=== PATIENT | male | born 1950 | race Caucasian/White ===

== ENCOUNTER 2017-07-06 10:30 | Outpatient (RCR) | payer OTHER ==
--- NOTE | 2017-06-05 15:01 | PT INITIAL EVALUATION ---
MEDICAL DIAGNOSIS: Right Leg Pain and Weakness TREATMENT DIAGNOSIS: Right Leg Pain and Weakness DATE OF ONSET: 06/05/17 SUBJECTIVE: Deny is a 67 year-old male presenting to physical therapy following gradual onset of R leg pain and weakness that has progressed over the last 6 MO. Pain is currently located in the R quad and groin with radiating pain down to the medial lower leg and ankle rated as a 5/10. Pt reports that occasionally he will have foot weakness, but frequently has leg weakness and is unable to put full weight on it or stay in one position very long. Pt is currently receiving treatment for colon cancer as well with mets to the lungs, liver, and lymph nodes. Pt was recently screened for mets to the long bones, spine as well as for any presence of DVT with all tests negative. 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 Pt's is present throughout evaluation. Posture: Pt has forward flexed posture without lumbar lordosis. When seated and standing pt has weight shifted over L LE. ROM: Lumbar ROM: flexion: minimal restriction with pain, ext: severe restrictions with pain, rotation: B full without pain, side-bending: B full without pain. Hip ROM: flexion: L minimal restrictions secondary to R leg pain, R moderate restrictions at only 90 degrees with R leg pain. ER: B minimal restrictions without pain, IR: L full without pain, R moderate restrictions with pain, Ext: unable to achieve B secondary to pain. Strength: Hip: Flexion: L 4+/5, R 3+/5, ext: B 4+/5, abd: B 4+/5 with slight pain on R side, add: L 4/5, R 3+/5 with pain. Palpation: Pt is tender to palpation along the groin and medial thigh. Special Tests: CLAU: (-) B, FADIR: (+) R side, Thigh Thrust (-) B, pain with passive R Hip abduction. Mobility: Criss Repeated lumbar motion: Ext: centralization of pain from ankle to groin only with decreased intensity at 4/10. Flexion: no change in pain. Gait: Antalgic gait with decreased WB on R LE in stance phase. ASSESSMENT: Pt shows signs and symptoms consistent with lumbar posterior derangement at the L2/3 level with neural impingement and radiating pain and weakness into the R LE. Physical therapy is indicated to correct the above listed deficits, decrease pt pain and improve pt function with ADL's. Short Term Goals In 2 weeks pt will centralize pain without radiation for improved function with ADL's. In 4 weeks pt will improve LE strength to equal to that of the contralateral limb for improved functional gait and ambulation with ADL's. In 4 weeks pt will decrease pain to <2/10 with ADL's for improved functional mobility. Patient's Goals Decrease pain, improve function PLAN: Patient to be seen for Manual Therapy/STM/MET Strengthening/condition Ice/Heat Range of Motion Spinal Stabilization Ultrasound Stretching Iontophoresis Neuromuscular Re-ed Closed Chain Program Electrical Stim Posture/Body mechanics Gait Trg/Balance Trg Biofeedback Home Exercise Program Mech./Manual Traction Therapeutic Activities Pelvic Floor 3x/Week for 4 Weeks If you have any questions, comments, or concerns about this report or plan, please contact me at . Thank you, Breanne Maier, PT, DPT, CLT MTDD
--- NOTE | 2017-06-30 10:18 | PT PLAN OF CARE ---
Physician: SHIRA Ovalle Patient is being seen: 2x/week Therapist: Gallo Bailey, PT, DPT Medical Diagnosis: Right Leg Pain and Weakness Treatment Diagnosis: Right Leg Pain and Weakness Date of Onset: 06/05/17 Date of Initial Evaluation: 06/05/17 Date patient was last seen: 06/29/17 Number of treatments: 10 Number of cancellations/No shows: 0 INTERVENTIONS: Manual Therapy/STM/MET Strengthening/condition Ice/Heat Range of Motion Spinal Stabilization Ultrasound Stretching Iontophoresis Neuromuscular Re-ed Closed Chain Program Electrical Stim Posture/Body mechanics Gait Trg/Balance Trg Biofeedback Home Exercise Program Mech./Manual Traction Therapeutic Activities Pelvic Floor GOALS: In 2 weeks pt will centralize pain to one location without radiation for improved function with ADL's. In 4 weeks pt will improve LE strength to equal to that of the central limb for improved functional gait and ambulation with ADL's. In 4 weeks pt will decrease pain to <2/10 with ADL's for improved functional mobility. PATIENT'S GOAL: Decrease pain, improve function Status of Patient's Goals: slowly progressing Patient Compliance: Good Prognosis: Fair Reasons for continuing therapy: This is a progress note for Deny Donahue. He reports that his low back pain was feeling better until he sat too fast and too hard over the weekend and states that the low back pain has returned. He reports that the pain extends from R to L PSIS. However, he reports that he continues to have this R groin pain that seems to stay around even after physical therapy treatments. He rates his R groin pain to be 5/10 and rates his low back pain to be 3-4/10. Throughout this treatment, we re-examined his low back and found that his groin pain became worse with prone extension, prone extension with hips shifted to the R, however, his groin pain became better with prone extension with hips shifted to the L. Furthermore, he abolished his R groin pain with L sidegliding and by the end of the session he was independent on his L sidegliding motion and was instructed to perform every 2 hours or if groin pain returns prior to the 2 hour ruma. He agreed to do so. We will centralized his pain and then the pain will abolish and then we will perform recovery of function to return to prior level of function. Posture: Pt has forward flexed posture without lumbar lordosis. When seated and standing pt has weight shifted over L LE. ROM: Lumbar ROM: flexion: minimal restriction with pain, ext: severe restrictions with pain, rotation: B full without pain, side-bending: B full without pain. Hip ROM: flexion: L minimal restrictions secondary to R leg pain, R moderate restrictions at only 90 degrees with R leg pain. ER: B minimal restrictions without pain, IR: L full without pain, R moderate restrictions with pain, Ext: unable to achieve B secondary to pain. Strength: Hip: Flexion: L 4+/5, R 3+/5, ext: B 4+/5, abd: B 4+/5 with slight pain on R side, add: L 4/5, R 3+/5 with pain. Palpation: Pt is tender to palpation along the groin and medial thigh. Special Tests: CLAU: (-) B, FADIR: (+) R side, Thigh Thrust (-) B, pain with passive R Hip abduction. Mobility: Criss Repeated lumbar motion: Ext: centralization of pain from ankle to groin only with decreased intensity at 4/10. Flexion: no change in pain. If you have any questions, please contact me at [phone]. Thank you, Gallo Bailey, PT, DPT VYD
[~2017-07-06 10:30] MED LIST: FAMO20TA28 PO; IBUP100T51 PO; LACT1CAP4 PO; ONDA4TAB PO; ONDA8TAB94 PO; OXYC-373 PO; OXYC5TAB38 PO; PRED20TA6 PO; PROC10TA95 PO; TURM538C PO
[2017-07-13] MEDS ORDERED: MULT-1335 PO (10:43)
--- NOTE | 2017-07-27 11:12 | PT PLAN OF CARE ---
Physician: SHIRA Ovalle Patient is being seen: 2-3x/Week Therapist: Breanne Maier, PT, DPT, CLT Medical Diagnosis: Right Leg Pain and Weakness Treatment Diagnosis: Right Leg Pain and Weakness Date of Onset: 06/05/17 Date of Initial Evaluation: 06/05/17 Date patient was last seen: 07/13/17 Number of treatments: 13 Number of cancellations/No shows: 2 NTERVENTIONS: Manual Therapy/STM/MET Strengthening/condition Ice/Heat Range of Motion Spinal Stabilization Ultrasound Stretching Iontophoresis Neuromuscular Re-ed Closed Chain Program Electrical Stim Posture/Body mechanics Gait Trg/Balance Trg Biofeedback Home Exercise Program Mech./Manual Traction Therapeutic Activities Pelvic Floor GOALS: In 2 weeks pt will centralize pain to one location without radiation for improved function with ADL's. In 4 weeks pt will improve LE strength to equal to that of the central limb for improved functional gait and ambulation with ADL's. In 4 weeks pt will decrease pain to <2/10 with ADL's for improved functional mobility. PATIENT'S GOAL: Decrease pain, improve function Status of Patient's Goals: slowly progressing Patient Compliance: Good Prognosis: Fair Reasons for continuing therapy: This is a progress note for Deny Donahue. He reports that his low back pain was feeling better until he sat too fast and too hard over the weekend and states that the low back pain has returned. He reports that the pain extends from R to L PSIS. However, he reports that he continues to have this R groin pain that seems to stay around even after physical therapy treatments. He rates his R groin pain to be 5/10 and rates his low back pain to be 3-4/10. Throughout this treatment, we re-examined his low back and found that his groin pain became worse with prone extension, prone extension with hips shifted to the R, however, his groin pain became better with prone extension with hips shifted to the L. Furthermore, he abolished his R groin pain with L sidegliding and by the end of the session he was independent on his L sidegliding motion and was instructed to perform every 2 hours or if groin pain returns prior to the 2 hour ruma. He agreed to do so. We will centralized his pain and then the pain will abolish and then we will perform recovery of function to return to prior level of function. Posture: Pt has forward flexed posture without lumbar lordosis. When seated and standing pt has weight shifted over L LE. ROM: Lumbar ROM: flexion: minimal restriction with pain, ext: severe restrictions with pain, rotation: B full without pain, side-bending: B full without pain. Hip ROM: flexion: L minimal restrictions secondary to R leg pain, R moderate restrictions at only 90 degrees with R leg pain. ER: B minimal restrictions without pain, IR: L full without pain, R moderate restrictions with pain, Ext: unable to achieve B secondary to pain. Strength: Hip: Flexion: L 4+/5, R 3+/5, ext: B 4+/5, abd: B 4+/5 with slight pain on R side, add: L 4/5, R 3+/5 with pain. Palpation: Pt is tender to palpation along the groin and medial thigh. Special Tests: CLAU: (-) B, FADIR: (+) R side, Thigh Thrust (-) B, pain with passive R Hip abduction. If you have any questions, please contact me at [phone]. Thank you, Breanne Maier, PT, DPT, CLT MTDD
== END 2017-07-06 18:00 | disposition home or self-care (01) ==
LOC: PT 10:30
PROVIDERS: ATTEND Nurse Practitioner Family
DX: M79.604 Pain in right leg (principal); M62.81 Muscle weakness (generalized); C26.0 Malignant neoplasm of intestinal tract, part unspecified; C78.00 Secondary malignant neoplasm of unspecified lung; C78.7 Secondary malignant neoplasm of liver and intrahepatic bile duct; C77.9 Secondary and unspecified malignant neoplasm of lymph node, unspecified
CPT/HCPCS: 97162

== ENCOUNTER 2017-07-14 13:30 | Outpatient (RCR) | payer OTHER ==
[2017-05-11 15:37] VITALS: BP 136/90
--- NOTE | 2017-05-13 00:54 | ONCOLOGY FOLLOW UP NOTE ---
EVENT DATE: May 11, 2017 CHIEF COMPLAINT/REASON FOR VISIT Mr. Donahue is a pleasant 67-year-old gentleman with metastatic colon cancer now on second line PD1 inhibitor that presents for followup. HISTORY OF PRESENT ILLNESS Mr. Donahue returns. He received 10 cycles of FOLFOX followed by 5-FU leucovorin with Avastin. We transitioned to the oxaliplatin free regimen in January 2017 and this continued until March 2017 where he had progressive disease. We have now started Keytruda and he is tolerating this well. His biggest complaint though is sciatica type pain which preceded the initiation of Keytruda. I am worried about a bulging disk or spinal stenosis based on his history. I would like to get an MRI to rule out metastatic disease there as well, however, I think this is most likely an unrelated issue. It is causing pain down his right leg, trouble sleeping, and most of his side effects at this time. In general he feels better the farther away he gets from chemotherapy. 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. ONCOLOGIC HISTORY Patient presented with three to four months of anorexia and steady weight loss of 25 pounds. Imaging revealed stage IV adenocarcinoma of the colon. He received his initial therapy with FOLFOX with Avastin in [place] to be closer to family. He received 10 cycles of FOLFOX with Avastin. We transitioned to 5-FU leucovorin and Avastin without oxaliplatin on January 13, 2017. His scans including the most recent scan on January 13 showed decreased hepatic metastatic disease, no new evidence of disease, improved lymph nodes. Evidence of progression in April 2017. Plan to switch to pembrolizumab. 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. 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 MEDICATIONS 1. Oxycodone. 2. Zofran. 3. Tumeric. 4. Compazine. 5. Probiotic. 6. Pepcid. REVIEW OF SYSTEMS CONSTITUTIONAL: No fevers, chills, weight change. HEENT: No headache, vision changes. CARDIOVASCULAR: No chest pain, dyspnea on exertion or edema. RESPIRATORY: No shortness of breath, wheeze, cough. GASTROINTESTINAL: No nausea, vomiting, diarrhea or constipation. GENITOURINARY: No dysuria or hematuria, pain. MUSCULOSKELETAL: No weakness or joint pain. PSYCHIATRIC: No anxiety or depression. Normal mood and affect today. NEUROLOGIC: No headaches. Confusion. HEMATOLOGIC: No bruising, bleeding. SKIN: No concerning rashes or other new lesions. The remainder of the 14-point review of systems is otherwise negative, except as noted above in the HPI. PHYSICAL EXAMINATION VITAL SIGNS: Blood pressure 136/90, pulse 88, respiratory rate 16, temperature 97.1 degrees Fahrenheit. Oxygen saturation 95% on room air. Weight 75.7 kg. Pain 3/10, fatigue 5/10. GENERAL: In stable condition, resting comfortably in the chair. HEENT: Normocephalic, atraumatic. CARDIOVASCULAR: Regular rate and rhythm. LUNGS: Clear. ABDOMEN: Soft, nontender, nondistended. NEUROLOGIC: Patient has pain down the medial thigh on the right leg. It is affecting his gait somewhat. He does feel some relief with leaning forward, which makes me think of spinal stenosis. I am also concerned about potentially a bulging disk or other issue. We did not see significant metastatic disease in that area, but we will review imaging with an MRI soon. Normal mood and affect, otherwise unremarkable physical exam. EXTREMITIES: No clubbing, cyanosis or edema. IMPRESSION AND PLAN Mr. Donahue is a pleasant 67-year-old gentleman with the followin. Stage IV metastatic adenocarcinoma of the colon, MSI high, on pembrolizumab and tolerating it well. 2. Right leg pain and back pain. Concern for a benign unrelated issue and we will get an MRI. It is possible he has metastatic disease in that area as well with some pseudo progression since starting the pembrolizumab. However, his symptoms did proceed initiation. I answered all of his questions. We will see him at least monthly. Billing: Return visit level 4. Total time 30 minutes, counseling time 20. MTDD
[2017-05-14 13:22] VITALS: BP 139/98
[2017-05-21 08:09] VITALS: BP 132/101
--- NOTE | 2017-05-21 13:58 | RADIOLOGY IMAGING REPORT ---
FACILITY: [facility] PATIENT NAME: Deny Donahue : 1950 MR: [id number] V: [id number] EXAM DATE: ORDERING PHYSICIAN: ANICETO WARD TECHNOLOGIST: Location: [facility] Patient: Deny Donahue : 1950 Visit/Account:[id number] Date of Sevice: 05/21/2017 EXAMINATION: Lumbar spine MRI without IV contrast Lumbar spine MRI with IV contrast HISTORY: Low back pain. Colon cancer. COMPARISON: CT of the chest, abdomen, and pelvis dated 04/08/2017 TECHNIQUE: Multi-planar, multi-sequence lumbar spine MRI was performed before and after IV contrast. CONTRAST: 15 mL of IV MultiHance FINDINGS: Alignment: Normal. Vertebral marrow signal: Mild degenerative endplate changes at a few levels. Otherwise negative. Distal thoracic cord: Negative. Conus: negative, terminates at L1 Cauda equina: Negative. Paravertebral soft tissues: Negative. Visualized abdominal and pelvic structures: Negative. Enhancement pattern: Negative. Disc Spaces: Lower thoracic spine: Mild degenerative changes with no stenosis. L1-2: Mild circumferential disc bulge and facet hypertrophy. Small central annular fissure. Mild bila teral lateral recess stenosis. No significant neural foraminal stenosis. L2-3: Mild disc height loss. Circumferential disc bulge, eccentric to the left, with superimposed sma ll left central disc extrusion. Mild to moderate facet hypertrophy and ligamentum flavum thickening. Severe left lateral recess stenosis with possible impingement of the traversing left L3 nerve root. M ild right lateral recess stenosis. Moderate left neural foraminal stenosis. L3-4: Mild circumferential disc bulge. Moderate facet hypertrophy and ligamentum flavum thickening, l eft greater than right. Mild right and moderate left lateral recess stenosis. Mild right and moderate left neural foraminal stenosis. L4-5: Mild circumferential disc bulge. Moderate to severe facet hypertrophy and ligamentum flavum thi ckening, left greater than right. Moderate bilateral lateral recess stenosis. Mild central spinal can al stenosis. And mild to moderate right and moderate left neural foraminal stenosis. L5-S1: Moderate central disc protrusion with bilateral facet hypertrophy. Moderate bilateral lateral recess stenosis. Mild bilateral neural foraminal stenosis. IMPRESSION: Multilevel degenerative disc disease and facet hypertrophy of the lumbar spine. No evidence of lumbar spine metastasis. Please see above report for level by level description. Report Dictated By: Patrice Thibodeaux MD at 05/21/2017 1:44 PM Report E-Signed By: Patrice Thibodeaux MD at 05/21/2017 1:54 PM WSN:[id number]
[2017-06-04 11:04] VITALS: BP 151/104
--- NOTE | 2017-06-04 12:40 | RADIOLOGY IMAGING REPORT ---
[facility] PATIENT NAME: Deny Donahue : 1950 MR: [id number] V: [id number] EXAM DATE: ORDERING PHYSICIAN: RHETT AVALOS TECHNOLOGIST: Location: [facility] Patient: Deny Donahue : 1950 Visit/Account:[id number] Date of Sevice: 06/04/2017 Venous Doppler ultrasound right lower extremity Indication: Right upper leg swelling. Right groin pain.. Comparison: None Available Findings: Duplex Doppler and color flow imaging was performed. The common femoral, femoral, and popliteal veins are all patent and compressible with normal Doppler wave forms. There are normal responses to augme ntation. The posterior tibial and peroneal veins are patent in the calf. The proximal greater saphenous vein is also normal. IMPRESSION: No evidence of deep venous thrombosis of the right lower extremity. Report Dictated By: Patrice Thibodeaux MD at 06/04/2017 12:33 PM Report E-Signed By: Patrice Thibodeaux MD at 06/04/2017 12:34 PM WSN:[id number]
[2017-06-04] MEDS: NS(*) 0.9% 100 ML BAG 100 ML IVPB PRN (12:43)
--- NOTE | 2017-06-04 16:21 | ONC Progress Note - NP.Halsey ---
Patient History Date of Service Jun 04, 2017 Reason For Visit/HPI Patient is seen in the clinic today for cycle 3 of Keytruda given every 21 days for his metastatic colon cancer. Patient continues to have fatigue and weakness. He is complaining of pain in his right upper thigh with slight edema. He had an MRI of the lumbar spine which was reviewed in detail with patient and spouse today. This shows degenerative disease only and no evidence of metastatic bone disease. Ultrasound was completed today to rule out deep vein thrombosis. This was reported to be negative. Patient will be referred for physical therapy and possible lymphedema management if indicated. Patient is taking oxycodone 10 mg at night and only ibuprofen during the day because of the side effects oxycodone causes he does not want to take it in the daytime. He reports tolerating Keytruda without any side effects. Problem List (1) Colon cancer Oncology History Patient presented with three to four months of anorexia and steady weight loss of 25 pounds. Imaging revealed stage IV adenocarcinoma of the colon. He received his initial therapy with FOLFOX with Avastin in [place] to be closer to family. He received 10 cycles of FOLFOX with Avastin. We transitioned to 5-FU leucovorin and Avastin without oxaliplatin on January 13, 2017. His scans including the most recent scan on January 13 showed decreased hepatic metastatic disease, no new evidence of disease, improved lymph nodes. Evidence of progression in April 2017. 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 Alcohol History He denies abuse Smoking History: No Smoking Status: Never Smoker Medications and Allergies Active Scripts Oxycodone Hcl (OXYCODONE HCL) 5 Mg Tablet, 5 MG PO Q3-4H for PAIN, #150 TAB Prov:RHETT AVALOS BRIDGE RIGGER-BC, ONC 05/21/17 Prochlorperazine Maleate (PROCHLORPERAZINE MALEATE) 10 Mg Tablet, 10 MG PO Q6H, #60 TAB 3 Refills Prov:RHETT AVALOS BRIDGE RIGGER-BC, ONC 04/23/17 Ondansetron (ZOFRAN ODT) 8 Mg Tab.rapdis, 8 MG PO Q12H, #60 TAB 3 Refills Prov:RHETT AVALOS BRIDGE RIGGER-BC, ONC 02/12/17 Reported Medications Ibuprofen (ADVIL) 100 Mg Tablet, 2 TAB PO PRN 05/11/17 Turmeric Root Extract (Turmeric) 538 Mg Capsule, PO 01/26/17 Lactobacillus Acidophilus (PROBIOTIC) 1 Each Capsule, 1 EACH PO DAILY, CAPSULE 01/26/17 Famotidine (PEPCID) 20 Mg Tablet, 20 MG PO BID, #10 TAB 01/26/17 Discontinued Scripts Prednisone (PREDNISONE) 20 Mg Tablet, 10 MG PO QDAY for 3 Days, #30 TAB Please take 10mg PO for 3 days and save extra pills for future. Prov:ANICETO WARD MD 05/11/17 Allergies: Coded Allergies: No Known Drug Allergies (Unverified , 06/26/16) Review of System/Physical Exam Review of Systems All Systems Reviewed/Normal: Yes, Except as Noted Cardiovascular: Positive for Edema (right upper thigh) Respiratory: Positive for Shortness of Breath (with exertion thought to be due to fatigue) Hematologic: Positive for Fatigue, Positive for Weakness Musculoskeletal: Positive for Muscle Pain (right thigh), Positive for Joint Pain (right groin area) Psychiatric: Depression (flat affect), Other (spouse is with him today) Physical Exam Vital Signs Temperature: 96.8 Pulse: 85 BP Systolic: 151 BP Diastolic: 104 Respiratory Rate: 16 O2 SAT: 96 O2 Delivery: Height (inches) 65.15 Weight lb: Weight oz: Weight Kg (Dae): Pain: 3 ECOG Score: 2 General: Stable, Well Developed, Well Nourished, Not In Acute Distress Neck: Supple Lungs: Clear to Auscultation Heart: Regular Rate, Regular Rhythm, No Gallops Abdomen: Soft and Nontender, No Hepatosplenomegaly, No Masses Extremities: Edema (right upper thigh area appears to be larger than the left upper thigh, tenderness with palpation in the right medial groin area. Ultrasound was reported to be unremarkable for deep vein thrombosis) Lymphadenopathy: No Cervical Psychiatric: Mood appears normal (normal for this patient), Affect appears normal (flat affect), Other (spouse is with him and answers most questions for patient) Skin: No Bruising, No Purpura Diagnostic Studies Diagnostic Studies Laboratory Laboratory Tests 06/04/17 11:10 Laboratory Tests 06/04/17 11:10: White Blood Count 7.3, Hemoglobin 16.1, Hematocrit 45.9, Platelet Count 208, Neutrophils (%) (Auto) 71.1, Lymphocytes (%) (Auto) 14.3, Neutrophils # (Auto) 5.2, Lymphocytes # (Auto) 1.0, Sodium Level 131, Potassium Level 4.1, Chloride Level 96, Carbon Dioxide Level 24, Blood Urea Nitrogen 14, Creatinine 0.90, Glomerular Filtration Rate Calc > 60.0, Random Glucose 141, Calcium Level 9.0, Magnesium Level 1.9, Total Bilirubin 1.8, Aspartate Amino Transf (AST/SGOT) 62, Alanine Aminotransferase (ALT/SGPT) 51, Alkaline Phosphatase 447, Total Protein 6.8, Albumin 3.5, Thyroid Stimulating Hormone (TSH) 2.66, Free Thyroxine 1.39 Assessment and Plan Assessment & Plan Mr. Donahue is a pleasant 67-year-old gentleman with the followin. Stage IV metastatic adenocarcinoma of the colon, MSI high, on pembrolizumab and tolerating it well. Patient completed cycle 3 today 2. Right leg pain and back pain. Concern for a benign unrelated issue and we will get an MRI. No evidence of metastatic disease noted. Patient was given prednisone but didn't take it. Ultrasound of the right leg to include the groin area was completed today to rule out DVT. This was unremarkable no evidence of a DVT. Patient has slight edema. He'll be referred for physical therapy for strengthening and possible lymphedema management if indicated. Patient will follow with Dr. Aguirre or myself with his next treatment. He agreed with this plan of care. I personally spent a total of 35 minutes. Of that 35 minutes was counseling/ coordination of patient's care. See my note above for details. Copies to: JACK OLIVEIRA MD; ANICETO WARD MD, NANCY J BRIDGE RIGGER-BC, ONC Jun 04, 2017 16:21
[2017-06-10 13:04] VITALS: BP 126/92
--- NOTE | 2017-06-10 13:57 | ONC Progress Note - NP.Halsey ---
Patient History Date of Service Jun 10, 2017 Reason For Visit/HPI Patient is seen in the clinic after experiencing a fall from the 3rd step to his bottom last night. Patient denies any acute pain or changes in pain. He feels that he had the breath knocked out of him when he experienced a fall, but was able to get up and ambulate without difficulty. He denies any increased symptoms and pain. He has no bruising in the area. Patient is able to ambulate without changes. At this time he is not interested in any x-rays or diagnostic studies for further evaluation. He would like to continue physical therapy as he feels that it is helping with his weakness. His and daughter are with him today. They have no increased concerns. Patient was seen in the clinic recently for cycle 3 of Keytruda given every 21 days for his metastatic colon cancer. He was experiencing weakness and fatigue due to treatment and pain was stable. He is tolerating Keytruda without difficulty Problem List (1) Fall (on) (from) other stairs and steps, sequela (2) Colon cancer Oncology History Patient presented with three to four months of anorexia and steady weight loss of 25 pounds. Imaging revealed stage IV adenocarcinoma of the colon. He received his initial therapy with FOLFOX with Avastin in [place] to be closer to family. He received 10 cycles of FOLFOX with Avastin. We transitioned to 5-FU leucovorin and Avastin without oxaliplatin on January 13, 2017. His scans including the most recent scan on January 13 showed decreased hepatic metastatic disease, no new evidence of disease, improved lymph nodes. Evidence of progression in April 2017. 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 Alcohol History He denies abuse Smoking History: No Smoking Status: Never Smoker Medications and Allergies Active Scripts Oxycodone Hcl (OXYCODONE HCL) 5 Mg Tablet, 5 MG PO Q3-4H for PAIN, #150 TAB Prov:RHETT AVALOS PRIMARY CARE NURSE PRACTITIONER-BC, ONC 05/21/17 Prochlorperazine Maleate (PROCHLORPERAZINE MALEATE) 10 Mg Tablet, 10 MG PO Q6H, #60 TAB 3 Refills Prov:RHETT AVALOS PRIMARY CARE NURSE PRACTITIONER-BC, ONC 04/23/17 Ondansetron (ZOFRAN ODT) 8 Mg Tab.rapdis, 8 MG PO Q12H, #60 TAB 3 Refills Prov:RHETT AVALOS PRIMARY CARE NURSE PRACTITIONER-BC, ONC 02/12/17 Reported Medications Ibuprofen (ADVIL) 100 Mg Tablet, 2 TAB PO PRN 05/11/17 Turmeric Root Extract (Turmeric) 538 Mg Capsule, PO 01/26/17 Lactobacillus Acidophilus (PROBIOTIC) 1 Each Capsule, 1 EACH PO DAILY, CAPSULE 01/26/17 Famotidine (PEPCID) 20 Mg Tablet, 20 MG PO BID, #10 TAB 01/26/17 Discontinued Scripts Prednisone (PREDNISONE) 20 Mg Tablet, 10 MG PO QDAY for 3 Days, #30 TAB Please take 10mg PO for 3 days and save extra pills for future. Prov:ANICETO WARD MD 05/11/17 Allergies: Coded Allergies: No Known Drug Allergies (Unverified , 06/26/16) Review of System/Physical Exam Review of Systems All Systems Reviewed/Normal: Yes, Except as Noted Gastrointestinal: Abdominal Pain Hematologic: Positive for Fatigue, Positive for Weakness Musculoskeletal: Positive for Muscle Pain, Positive for Joint Pain, Positive for Bone Pain Physical Exam Vital Signs Temperature: 97.0 Pulse: 80 BP Systolic: 126 BP Diastolic: 92 Respiratory Rate: 16 O2 SAT: 95 O2 Delivery: Height (inches) 65.15 Weight lb: Weight oz: Weight Kg (Dae): Pain: 5 ECOG Score: 1 General: Stable, Well Developed, Well Nourished, Not In Acute Distress Heart: Regular Rate, Regular Rhythm Abdomen: Soft and Nontender, No Hepatosplenomegaly, No Masses Extremities: No Cyanosis, No Clubbing, No Edema, Other (No pain in the thoracic area with palpation or movement. No pain in the hips bilaterally with palpation and hip rotation. Ambulation is slow and with the use of a cane, this is unchanged from previous. No tingling or radiatiing pain in the lower extremities) Psychiatric: Mood appears normal, Affect appears normal, Other (spouse and daughter are with him today and agree with plan of care.) Skin: No Bruising, No Purpura Diagnostic Studies Diagnostic Studies Laboratory no studies today Laboratory Tests 06/04/17 11:10 Laboratory Tests 06/04/17 11:10: White Blood Count 7.3, Hemoglobin 16.1, Hematocrit 45.9, Platelet Count 208, Neutrophils (%) (Auto) 71.1, Lymphocytes (%) (Auto) 14.3, Neutrophils # (Auto) 5.2, Lymphocytes # (Auto) 1.0, Sodium Level 131, Potassium Level 4.1, Chloride Level 96, Carbon Dioxide Level 24, Blood Urea Nitrogen 14, Creatinine 0.90, Glomerular Filtration Rate Calc > 60.0, Random Glucose 141, Calcium Level 9.0, Magnesium Level 1.9, Total Bilirubin 1.8, Aspartate Amino Transf (AST/SGOT) 62, Alanine Aminotransferase (ALT/SGPT) 51, Alkaline Phosphatase 447, Total Protein 6.8, Albumin 3.5, Thyroid Stimulating Hormone (TSH) 2.66, Free Thyroxine 1.39, Free Triiodothyronine 2.8 Assessment and Plan Assessment & Plan Mr. Donahue is a pleasant 67-year-old gentleman with the followin. Stage IV metastatic adenocarcinoma of the colon, MSI high, on pembrolizumab and tolerating it well. Patient completed cycle 3 on 06-04-17 without difficulty. 2. Right leg pain and back pain. Concern for a benign unrelated issue. MRI had no evidence of metastatic disease. Patient was given prednisone but didn't take it. Ultrasound of the right leg to include the groin area was completed on 06-04-17 to rule out DVT. This was unremarkable no evidence of a DVT. Patient had slight edema. He was referred for physical therapy for strengthening and possible lymphedema management if indicated. Patient reports improvement with PT regarding pain and mobility. 3. Fall from second stair to his back on 06-09-16 in the evening. Patient did not go to the emergency room and did not feel he had increased pain or experienced any trauma. He is able to ambulate today without significant changes. Pain remains stable. He agreed to have diagnostic studies done if pain increased. We will monitor for change in symptoms. He can continue with PT exercises and will stop if he has increased pain. Patient will follow with Dr. Aguirre or myself with his next treatment. He agreed with this plan of care. I personally spent a total of 20 minutes. Of that 20 minutes was counseling/ coordination of patient's care. See my note above for details. RHETT AVALOS PRIMARY CARE NURSE PRACTITIONER-BC, ONC Jun 10, 2017 13:57
--- NOTE | 2017-06-25 11:28 | ONC Progress Note - NP.Halsey ---
Patient History Date of Service Jun 25, 2017 Reason For Visit/HPI Patient is seen in the clinic today for cycle 4 of Keytruda given every 21 days for his metastatic colon cancer. Overall patient is tolerating treatment without difficulty. He denies any shortness of breath, diarrhea, or increased fatigue. Patient feels that his fatigue is slightly improved. He occasionally has incontinence of urine and is wearing a depends. He has had a couple episodes of stool incontinence related to inability to get to the bathroom quick enough due to pain in his hip. Patient has been on MiraLAX 1 Daily and I have encouraged them to decrease this to half a cap daily. He is fearful of developing constipation. He currently is taking 2 oxycodone daily for pain management and occasionally takes 2 Advil. Patient was seen in the clinic recently for a fall and reports that he has not had any further discomfort and feels that that pain has totally resolved. Problem List (1) Colon cancer Oncology History Patient presented with three to four months of anorexia and steady weight loss of 25 pounds. Imaging revealed stage IV adenocarcinoma of the colon. He received his initial therapy with FOLFOX with Avastin in [place] to be closer to family. He received 10 cycles of FOLFOX with Avastin. We transitioned to 5-FU leucovorin and Avastin without oxaliplatin on January 13, 2017. His scans including the most recent scan on January 13 showed decreased hepatic metastatic disease, no new evidence of disease, improved lymph nodes. Evidence of progression in April 2017. 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. 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 Alcohol History He denies abuse Smoking History: No Smoking Status: Never Smoker Medications and Allergies Active Scripts Prochlorperazine Maleate (PROCHLORPERAZINE MALEATE) 10 Mg Tablet, 10 MG PO Q6H, #100 TAB 2 Refills Prov:RHETT AVALOS-BC, ONC 06/25/17 Ondansetron (ZOFRAN ODT) 8 Mg Tab.rapdis, 8 MG PO Q8H, #60 TAB 3 Refills Prov:RHETT AVALOS-BC, ONC 06/25/17 Oxycodone Hcl (OXYCODONE HCL) 5 Mg Tablet, 5 MG PO Q3-4H for PAIN, #150 TAB Prov:RHETT AVALOSP-BC, ONC 05/21/17 Reported Medications Ibuprofen (ADVIL) 100 Mg Tablet, 2 TAB PO PRN 05/11/17 Turmeric Root Extract (Turmeric) 538 Mg Capsule, PO 01/26/17 Lactobacillus Acidophilus (PROBIOTIC) 1 Each Capsule, 1 EACH PO DAILY, CAPSULE 01/26/17 Famotidine (PEPCID) 20 Mg Tablet, 20 MG PO BID, #10 TAB 01/26/17 Allergies: Coded Allergies: No Known Drug Allergies (Unverified , 06/26/16) Review of System/Physical Exam Review of Systems All Systems Reviewed/Normal: Yes, Except as Noted Gastrointestinal: Diarrhea (loose stools) Genitourinary: Positive for Other (urinary incontinence, see above) Hematologic: Positive for Fatigue (Amalia relatively stable to improved), Positive for Weakness Musculoskeletal: Positive for Muscle Pain (right hip), Positive for Joint Pain Psychiatric: Other (his is with him today) Physical Exam Vital Signs Temperature: 97.0 Pulse: 80 BP Systolic: 126 BP Diastolic: 92 Respiratory Rate: 16 O2 SAT: 95 O2 Delivery: Height (inches) 65.15 Weight lb: Weight oz: Weight Kg (Dae): Pain: 5 ECOG Score: 2 General: Stable, Well Developed, Well Nourished, Not In Acute Distress HEENT: No Trauma Neck: Supple Lungs: Clear to Auscultation Heart: Regular Rate, Regular Rhythm, No Murmurs Abdomen: Soft and Nontender, No Hepatosplenomegaly, No Masses, Other (bowel sounds are active) Extremities: No Cyanosis, No Clubbing, No Edema Lymphadenopathy: No Cervical Psychiatric: Mood appears normal, Affect appears normal Skin: No Bruising, No Purpura Diagnostic Studies Diagnostic Studies Laboratory Item Value Date Time White Blood Count 10.3 k/uL 06/25/17 1115 Hemoglobin 15.8 g/dL 06/25/17 1115 Hematocrit 44.7 % 06/25/17 1115 Platelet Count 216 K/uL 06/25/17 1115 Neutrophils (%) (Auto) 71.3 % 06/25/17 1115 Lymphocytes (%) (Auto) 12.0 % L 06/25/17 1115 Neutrophils # (Auto) 7.4 K/uL 06/25/17 1115 Lymphocytes # (Auto) 1.2 K/uL L 06/25/17 1115 Sodium Level 135 mmol/L L 06/25/17 1115 Random Glucose 119 mg/dl H 06/25/17 1115 Aspartate Amino Transf (AST/SGOT) 64 U/L H 06/25/17 1115 Alkaline Phosphatase 402 U/L H 06/25/17 1115 Total Protein 6.8 gm/dl 06/25/17 1115 Free Triiodothyronine 2.8 pg/mL 06/04/17 1110 Carcinoembryonic Antigen 79.5 ng/mL H 04/08/17 0935 Assessment and Plan Assessment & Plan Mr. Donahue is a pleasant 67-year-old gentleman with the followin. Stage IV metastatic adenocarcinoma of the colon, MSI high, on pembrolizumab and tolerating it well. Patient completed cycle 3 on 06-04-17 without difficulty. He will receive cycle 4 today. Previous pain in the abdomen remains stable. Patient is currently taking 2 oxycodone daily and occasional to Advil as needed. Pain is rated a 2 /3 out of 10. 2. Right leg pain and back pain. Concern for a benign unrelated issue. MRI had no evidence of metastatic disease. Patient was given prednisone but didn't take it. Ultrasound of the right leg to include the groin area was completed on 06-04-17 to rule out DVT. This was unremarkable no evidence of a DVT. Patient had slight edema. He was referred for physical therapy for strengthening and possible lymphedema management if indicated. Patient reports improvement with PT regarding pain and mobility. He is currently being seen Thursday and Thursday. 3. Fall from second stair to his back on 06-09-16 in the evening. Patient did not go to the emergency room and did not feel he had increased pain or experienced any trauma. He is able to ambulate today without significant changes. Pain remains stable. He agreed to have diagnostic studies done if pain increased. We will monitor for change in symptoms. He can continue with PT exercises and will stop if he has increased pain. This pain is resolved no concerns today 4. Urinary incontinence this remains stable, patient is wearing depends 5. Loose stools. Patient is currently on MiraLAX nightly, he is encouraged to take only half the dose. Patient is fearful of developing constipation. Refill of Zofran and Compazine were completed today. Patient will follow with Dr. Aguirre or myself with his next treatment. He agrees with this plan of care. I personally spent a total of 20 minutes. Of that 20 minutes was counseling/ coordination of patient's care. See my note above for details. Copies to: JACK OLIVEIRA MD, NANCY J FRONT DESK-BC, ONC Jun 25, 2017 11:28
[2017-06-25 12:55] VITALS: BP 125/78
[2017-06-25] MEDS: NS(*) 0.9% 100 ML BAG 100 ML IVPB PRN (13:58)
[2017-07-07 12:38] VITALS: BP 119/88
--- NOTE | 2017-07-07 15:52 | RADIOLOGY IMAGING REPORT ---
FACILITY: [facility] PATIENT NAME: Deny Donahue : 1950 MR: [id number] V: [id number] EXAM DATE: ORDERING PHYSICIAN: RHETT AVALOS TECHNOLOGIST: [facility] Patient: Deny Donahue : 1950 Visit/Account:[id number] Date of Sevice: 07/07/2017 CHEST/AB/PELV W/CONTRAST HISTORY: Follow-up metastatic colon cancer ADDITIONAL HISTORY: None. TECHNIQUE: Following administration of IV contrast axial images acquired through the chest abdomen a nd pelvis during the portal venous phase. Coronal and sagittal reformatting was also performed. Dose Lowering Technique One of the following dose optimization techniques was utilized in the performance of this exam: Autom ated exposure control; adjustment of the mA and/or kV according to the patient's size; or use of an i terative reconstruction technique. Specific details can be referenced in the facility's radiology C T exam operational policy. CONTRAST: 75 mL Isovue-370 COMPARISON: April 08, 2017 FINDINGS: CHEST: Lungs/Pleura: The previously described 7 mm dominant nodule lateral aspect the right upper lobe has increased in size now measures 1 cm and is best seen on image 42. There is a 6 mm subpleural nodule anterolateral right middle lobe which did measure 4 mm previously a nd is best seen on image 54. There is a 1.2 cm spiculated nodule inferior aspect of the right lower lobe best seen on image 75 jorge sured 5 mm previously. there is a spiculated nodule in the posterior medial left lower lobe best seen on image 73 that now measures 1.4 cm in diameter previously measuring 8 mm. there is an 8 mm nodule lateral aspect of the left lower lobe best seen on image 55 previously measu ring 5 mm There is a 7 mm spiculated nodule medial aspect of the lingula best seen on image 54 previously measu ring 5 mm. There is a new 2 mm subpleural nodule lateral aspect the lingula best seen on image 52 There are additional other smaller nodules that have remained stable throughout the lungs. There is no evidence of pleural effusions. Mediastinum/lymph nodes: Negative. Heart/vessels: Moderate coronary artery vascular calcifications. There is a left-sided implanted po rt with the distal tip in superior vena cava Bones/soft tissues: There is a new moderate compression fracture of the L1 vertebral body with gas n oted in the disc space at T12-L1. Compression deformity at T7 remained stable ABDOMEN AND PELVIS: Hepatobiliary: Hypoenhancing metastatic liver lesion in the lateral right dome has further decreased in size now measures 1.2 x 0.9 cm as opposed to 1.6 x 1.2 cm and is best seen on image 82 The largest lesion in the lateral segment left lobe of the liver now measures 1.7 x 1.7 cm as opposed to 2.3 x 1.7 cm best seen on image 70. Other smaller hepatic lesions appear less conspicuous as wel l Spleen: Negative. Pancreas: Negative. Adrenals: Negative. Kidneys ureters and bladder : Bladder is very distended to the level the umbilicus. The kidneys appe ar grossly unremarkable other than mild cortical scarring lateral aspect of the lower pole the left k idney Genitalia: Again noted is loss of fat plane between the rectal mass in the prostate gland GI: The rectal mass appears to be increase in size now measuring 5.9 x 4.8 and previously measured 3.6 x 3.5 cm.. Some of this extends anteriorly with loss of the fat plane between the base of the pr ostate gland and the mass. This mass also appears to have a more cephalad extent with irregular nodu lar thickening extending into the rectosigmoid junction Vessels/spaces/nodes: The previously describ ed pelvic implant along the right pelvic sidewall above that she will spine has increased in size and now measures 5.3 x 4 cm as opposed to 3.7 x 2.8 cm previously this mass is coming more confluent wit h the previous study described adjacent lymph nodes which have also increased in size. Additional ri ght peroneal lymph nodes have increased in size. Right common iliac lymph node measures 2 x 1.8 cm a s opposed to 1.1 x 1 cm the infiltrative mass previously noted in the right adductor musculature and pectineus has further increased in size now measuring approximately 11 x 9.2 x 12.2 cm as opposed to 8.5 x 6.6 x 4.4 cm Bones/soft tissues: As described above Additional findings: None pertinent. IMPRESSION: There has been an overall increase in the upcoming metastases as detailed above. Some of the smaller nodules have remained stable. The largest nodule now measures 1.2 cm as opposed to 5 mm in the righ t lower lobe.. There has been a decrease in the size of the hepatic metastases when compared to the prior study. The bladder is very distended to the level the umbilicus The rectal mass has increased in size as detailed above with obliteration of the fat plane between th e rectal mass in the prostate gland. There also appears to be further cephalad extent of the mass wi th nodular thickening along the rectosigmoid region. The previously described retroperitoneal adenopathy pelvic implants and infiltrative mass in the righ t adductor musculature and pancreas have all increased in size Report Dictated By: Leeanna Laguerre MD at 07/07/2017 3:15 PM Report E-Signed By: Leeanna Laguerre MD at 07/07/2017 3:47 PM [id number]
[2017-07-13 10:41] VITALS: BP 119/67
[~2017-07-14] VITALS: Ht 165.5 cm; Wt 73.2 kg
[~2017-07-14 13:30] MED LIST changes: +ALTEPLASE RECOMB 2 MG VIAL IVP PRN; +DEXTROSE 5%(*) 100 ML BAG 100 ML IVPB PRN; +GADOBENATE 529MG/1ML 15ML VIAL IVP ONE; +HEPARIN FLSH (PORT) 500 UN/5ML IVP PRN; +IOPAMIDOL 76% 75 ML INFUS BTL 75 ML ONE; +LIDOCAINE/SOD BICARB 8.4% SYR ID PRN; +MULT-1335 PO; +NS 0.9% 20 ML SDV 40 ML ONE; +NS(*) 0.9% 500 ML BAG 500 ML IV PRN; +PEMBROLIZUMAB 100 MG/4 ML SDV 200 MG in NS(*) 0.9% 50 ML BAG 50 ML IV ONE; +WATER STERILE 10 ML VIAL IVP PRN
[2017-07-14 13:38] VITALS: BP 122/87
[2017-07-14] MEDS ORDERED: IOPAMIDOL 76% 75 ML INFUS BTL 75 ML ONE (14:12)
[2017-07-14] MEDS ORDERED: NS 0.9% 20 ML SDV 40 ML ONE (14:12)
--- NOTE | 2017-07-14 15:12 | RADIOLOGY IMAGING REPORT ---
FACILITY: [facility] PATIENT NAME: Deny Donahue : 1950 MR: [id number] V: [id number] EXAM DATE: ORDERING PHYSICIAN: ANICETO WARD TECHNOLOGIST: Location: [facility] Patient: Deny Donahue : 1950 Visit/Account:[id number] Date of Sevice: 07/14/2017 EXAMINATION: CT Head without intravenous contrast CT Head with intravenous contrast HISTORY: Metastatic colon cancer. TECHNIQUE: Contiguous axial images were obtained from the skull base to the vertex before and after IV contrast. Sagittal and coronal reformatted images are also submitted. One of the following dose optimization techniques was utilized in the performance of this exam: Autom ated exposure control; adjustment of the mA and/or kV according to the patient's size; or use of an i terative reconstruction technique. Specific details can be referenced in the facility's radiology C T exam operational policy. CONTRAST: 75 mL of IV Isovue-370 COMPARISON: None. FINDINGS: Brain volume: Normal. Ventricles: Negative. Acute ischemic changes: None. Hemorrhage: None. Masses / edema: None. Enhancement: Negative. Ugalde-white: Negative. White matter: Mild chronic microvascular ischemic changes. Vessels: Negative. Extra-axial: Negative. Calvarium / skull base: Negative. Visualized sinuses / orbits: Negative. IMPRESSION: No evidence of intracranial metastasis. Report Dictated By: Patrice Thibodeaux MD at 07/14/2017 3:02 PM Report E-Signed By: Patrice Thibodeaux MD at 07/14/2017 3:09 PM WSN:[id number]
--- NOTE | 2017-07-14 17:27 | Oncology Note ---
Patient was notified of CT results and will call tomorrow to get CEA results. Dr. Pandya was notified. Plan of care pending RHETT AVALOS PAINTER AND PAPERHANGER APPRENTICE-BC, ONC Jul 14, 2017 17:27
--- NOTE | 2017-07-14 19:42 | ONCOLOGY FOLLOW UP NOTE ---
EVENT DATE: July 13, 2017 CHIEF COMPLAINT/REASON FOR VISIT Mr. Donahue is a pleasant 67-year-old gentleman with metastatic colon cancer, currently on second line PD1 inhibition, that presents for followup. HISTORY OF PRESENT ILLNESS Mr. Donahue returns. He received 10 cycles of FOLFOX followed by 5-FU leucovorin with Avastin for his metastatic colorectal cancer diagnosis. We transitioned to the oxaliplatin free regimen in January 2017, and continued it into March 2017, where we discovered progressive disease. Despite tolerating Keytruda well , he now has rapidly progressive disease. Upon further review of his original pathology, we do seed that he does harbor a KRAS mutation, making cetuximab less of an option. We could utilize single-agent irinotecan, but he is a borderline candidate for this at this time. I had an extensive meeting with the family today. They have been with us in the clinic for over two and a half hours at this point. We have met with them and counseled them considerably as well as work with Social Work as well. They are concerned about confusion and he has a difficult time interacting with us in the decision making today. We do plan to get a CT scan to make sure we do not see any obvious MEDIA MARKETING COORDINATOR disease. I am worried, however, this is simply due to progressive disease. 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 , has two daughters, of which one is present here today. REVIEW OF SYSTEMS CONSTITUTIONAL: No fevers, chills. Positive weight loss. HEENT: No headache or vision changes. NEUROLOGIC: Some concern for poor memory. He is alert, but does not recall some details such as when he is due for his next treatment. CARDIOVASCULAR: No chest pain, dyspnea on exertion or edema. RESPIRATORY: No shortness of breath, wheeze, cough. GASTROINTESTINAL: No nausea, vomiting. GENITOURINARY: No dysuria or hematuria. MUSCULOSKELETAL: Positive global weakness. Struggling to work with Physical Therapy. PSYCHIATRIC: No anxiety or depression. The remainder of the 14-point review of systems is otherwise negative. PHYSICAL EXAMINATION VITAL SIGNS: Blood pressure 119/67, pulse 102, respiratory rate 16, temperature 97.1 Fahrenheit, oxygen saturation 96% on room air. Weight 73.2 kg. Pain 0/10, fatigue 6/10. GENERAL: In stable condition, resting comfortably in the chair. ECOG performance status of 2-3 at this time. He does present in a wheelchair today. NEUROLOGIC: Patient is alert, but does have poor memory. His and daughter answer for him frequently today. ABDOMEN: Soft. EXTREMITIES: No clubbing, cyanosis or edema. IMPRESSION AND PLAN Mr. Donahue is a pleasant 67-year-old gentleman with the following: Stage IV metastatic adenocarcinoma of the colon, mSA high, BRAF negative, KRAS mutated. After I met with the patient we discovered the positive KRAS mutation, which makes cetuximab not an option. I did not know this when I discussed it with Dr. Colin Rodriguez today. This is his oncologist from [place]. I think that neither the [place] team nor our team in [place] have any appropriate clinical trials. We can work to get genetic analysis if able with tissue to [facility]. We did discuss goals of care, and he is a borderline candidate for chemotherapy at this time. We could consider single agent irinotecan, although they are aware there is potential for significant side effects with this. Alternatively we could pursue hospice. They plan to discuss this in more detail. I answered all of their many questions over several visits with them, intermixed with Social Work as well. Billing: Return visit level 5. Total time 120 minutes, counseling time 70. High risk, high complexity. MTDD
[2017-07-28] MEDS ORDERED: MORP100S32 PO (12:27)
== END 2017-08-05 11:39 | disposition home or self-care (01) ==
LOC: SPU 13:30
PROVIDERS: ATTEND Internal Medicine
DX: Z51.11 Encounter for antineoplastic chemotherapy (principal); C18.9 Malignant neoplasm of colon, unspecified; C78.7 Secondary malignant neoplasm of liver and intrahepatic bile duct; Z79.899 Other long term (current) drug therapy; M79.604 Pain in right leg; M54.9 Dorsalgia, unspecified; Z92.21 Personal history of antineoplastic chemotherapy; M51.26 Other intervertebral disc displacement, lumbar region; M48.07 Spinal stenosis, lumbosacral region; R91.8 Other nonspecific abnormal finding of lung field
CPT/HCPCS: 36415; 70470; 71260; 72158; 74177; 82378; 83735; 84439; 84443; 84481; 85027; 93971; 96365; 96413; 96523; 99212; A9577; J7040; J7050; J9271; Q9967; 82040; 82247; 82310; 82374; 82435; 82565; 82947; 84075; 84132; 84155; 84295; 84450; 84460; 84520